=== PATIENT | male | born 1950 | race Caucasian/White ===

== ENCOUNTER 2021-03-30 18:42 | Inpatient (IN) ==
[2021-03-30] MEDS ORDERED: Lactated Ringers 1000 ml BAG IV.FLUID IV ONE (18:55)
[2021-03-30] MEDS ORDERED: cefTRIAXone 2 GM ADDV.VIAL 2 GM in NS 0.9% 100 ml BAG 100 ML IVPB ONE (21:31)
[2021-03-30 21:39] LABS: Activated Partial Thrombo Time 25.3 seconds (26.0-38.0); INR 1.37 (0.86-1.15)
[2021-03-30 21:44] LABS: ALT 72 U/L (7-52); AST 50 U/L (13-39); Albumin 2.5 g/dL (3.2-5.2); Albumin/Globulin Ratio 1.1 (1-3); Alkaline Phosphatase 64 U/L (35-149); Anion Gap 5 mmol/L (2-11); Blood Urea Nitrogen 19 mg/dL (6-24); C Reactive Protein 144.66 mg/L (<8.01); CO2 Carbon Dioxide 24 mmol/L (22-32); Calcium 7.5 mg/dL (8.6-10.3); Chloride 106 mmol/L (101-111); EGFR Non-African American 76.1 (>60); Globulin 2.3 g/dL (2-4); Glucose 143 mg/dL (70-100); Magnesium 1.8 mg/dL (1.9-2.7); Potassium 3.6 mmol/L (3.5-5.0); Sodium 135 mmol/L (135-145); Total Protein 4.8 g/dL (6.4-8.9)
[2021-03-30 21:45] LABS: Troponin I 0.01 ng/mL (<0.03)
[2021-03-30] MEDS ORDERED: Magnesium Sulfate 2 gm BAG 2 GM/50 ML BAG IVPB ONE (21:47)
[2021-03-30 21:55] LABS: Hematocrit 29 % (42-52); Hemoglobin 9.6 g/dL (14.0-18.0); Mean Corpuscular HGB Conc 33 g/dL (31-36); Mean Corpuscular Hemoglobin 30 pg (27-31); Mean Corpuscular Volume 91 fL (80-94); Red Blood Count 3.19 10^6 /uL (4.18-5.48); Red Cell Distribution Width 15 % (10-15); White Blood Count 3.7 10^3/uL (3.5-10.8)
[2021-03-30 22:02] LABS: Influenza A Molecular Negative (Negative); Influenza B Molecular Negative (Negative)
[2021-03-30] MEDS: NS 0.9% 1000 ml BAG 1,000 ML IV SCH (23:30)
[2021-03-31 00:05] LABS: Platelet Morphology Clumped; RBC Morphology Normal (Normal)
[2021-03-31 00:07] LABS: ABS Monocytes 0.6 10^3/ul (0-0.8); ABS Neutrophils 1.9 10^3/ul (1.5-7.7); Eosinophil % 0.2 %; Lymphocyte % 28.4 %; Nucleated Red Blood Cells % 0.4
[2021-03-31] MEDS: NS 0.9% 1000 ml BAG 1,000 ML IV SCH (01:48)
[2021-03-31 03:14] LABS: % Iron Saturation 21 % (15-55); Iron 45 ug/dL (50-212); Total Iron Binding Capacity 214 mcg/dL (250-450); Transferrin 153 mg/dL (203-362); Unsaturated Iron Binding < 199 ug/dL
[2021-03-31 03:28] LABS: TSH Ultra Thyroid Stim Horm 0.56 mcIU/mL (0.34-5.60)
[2021-03-31 03:53] LABS: Platelet Count, Citrated 73 10^3/ul (150-450)
[2021-03-31 05:04] LABS: Ferritin 1625.8 ng/mL (24-336)
[2021-03-31 08:45] LABS: INR 1.29 (0.86-1.15)
[2021-03-31 08:55] LABS: Albumin 2.3 g/dL (3.2-5.2); Albumin/Globulin Ratio 1.1 (1-3); EGFR African American 135.7 (>60); EGFR Non-African American 112.1 (>60); Globulin 2.1 g/dL (2-4); Phosphorus 2.8 mg/dL (2.5-5.0); Potassium 3.1 mmol/L (3.5-5.0); Total Bilirubin 0.5 mg/dL (0.2-1.0); Total Protein 4.4 g/dL (6.4-8.9)
[2021-03-31 08:56] LABS: Calcium 6.4 mg/dL (8.6-10.3)
[2021-03-31 09:19] LABS: ABS Lymphocytes 1.2 10^3/ul (1.0-4.8); ABS Monocytes 0.7 10^3/ul (0-0.8); ABS Neutrophils 1.9 10^3/ul (1.5-7.7); Eosinophil % 0.3 %; Hematocrit 27 % (42-52); Hemoglobin 9.2 g/dL (14.0-18.0); Lymphocyte % 31.1 %; Mean Corpuscular HGB Conc 34 g/dL (31-36); Mean Corpuscular Hemoglobin 30 pg (27-31); Mean Corpuscular Volume 89 fL (80-94); Nucleated Red Blood Cells % 0.2; Platelet Count Platelets clumped. 10^3/uL (150-450); Red Blood Count 3.04 10^6 /uL (4.18-5.48); Red Cell Distribution Width 15 % (10-15); White Blood Count 3.7 10^3/uL (3.5-10.8)
[2021-03-31] MEDS ORDERED: Potassium Chlor 20 meq TAB.ER PO ONE (09:40)
[2021-03-31] MEDS: KCL 20 MEQ/100 ML IVPREMIX 20 MEQ/100 ML BAG IV SCH ×2 (09:57→12:12)
[2021-03-31 10:25] LABS: Urine Appearance Clear; Urine Bilirubin Negative (Negative); Urine Blood 1+ (Negative); Urine Color Yellow; Urine Glucose Negative (Negative); Urine Ketones Negative (Negative); Urine Nitrite Negative (Negative); Urine Protein Negative (Negative); Urine Specific Gravity 1.012 (1.002-1.030); Urine Urobilinogen Negative (Negative)
[2021-03-31] MEDS ORDERED: oxyCODONE/Acetamin 5/325 mg TAB PO ONE (10:54)
[2021-03-31 11:21] LABS: Polychromasia 1+
[2021-03-31] MEDS: Azithromycin 500 mg/250 ml NS 500 MG/250 ML BAG IVPB SCH (14:09)
[2021-03-31] MEDS ORDERED: Lorazepam PYXIS KEY PRN (16:34)
[2021-03-31] MEDS: LORazepam 2 mg VIAL 1 ml IV PUSH ONE ×2 (17:22→18:14)
[2021-03-31 18:11] LABS: Calcium 7.6 mg/dL (8.6-10.3); EGFR African American 102.9 (>60); Magnesium 2.2 mg/dL (1.9-2.7); Potassium 4.1 mmol/L (3.5-5.0)
[2021-03-31] MEDS ORDERED: cefTRIAXone 1 gm/50 mL NS BAG 1 GM/50 ML BAG IVPB SCH (21:00)
[2021-04-01 07:24] LABS: Hematocrit 29 % (42-52); Hemoglobin 9.9 g/dL (14.0-18.0); Mean Corpuscular HGB Conc 35 g/dL (31-36); Mean Corpuscular Hemoglobin 31 pg (27-31); Mean Corpuscular Volume 89 fL (80-94); Mean Platelet Volume 9.3 fL (7.4-10.4); Red Blood Count 3.23 10^6 /uL (4.18-5.48); Red Cell Distribution Width 15 % (10-15); White Blood Count 3.6 10^3/uL (3.5-10.8)
[2021-04-01] MEDS ORDERED: NS 0.9% 1000 ml BAG 1,000 ML IV ONE (07:26)
[2021-04-01] MEDS ORDERED: Diltiazem IV push/loading dose 5 MG/ML 5 ML vial (25 mg) IV SLOW PU ONE (07:26)
[2021-04-01 07:31] LABS: Albumin 2.8 g/dL (3.2-5.2); Albumin/Globulin Ratio 1.1 (1-3); Calcium 7.9 mg/dL (8.6-10.3); EGFR Non-African American 97.5 (>60); Globulin 2.6 g/dL (2-4); Magnesium 2.1 mg/dL (1.9-2.7); Phosphorus 3.3 mg/dL (2.5-5.0); Potassium 3.7 mmol/L (3.5-5.0); Total Bilirubin 0.6 mg/dL (0.2-1.0); Total Protein 5.4 g/dL (6.4-8.9)
[2021-04-01 07:45] LABS: ABS Lymphocytes 1.4 10^3/ul (1.0-4.8); ABS Monocytes 0.5 10^3/ul (0-0.8); ABS Neutrophils 1.6 10^3/ul (1.5-7.7); Eosinophil % 0.5 %; Lymphocyte % 38.9 %; Nucleated Red Blood Cells % 0.1
[2021-04-01 07:48] LABS: Platelet Morphology Clumped; RBC Morphology Normal (Normal)
[2021-04-01 07:52] LABS: Platelet Count Platelets clumped. 10^3/uL (150-450)
[2021-04-01] MEDS ORDERED: Metoprolol Tartrate 5 mg VIAL 5 ml VIAL (1 mg/ml) ONE (07:53)
[2021-04-01] MEDS ORDERED: Metoprolol Tartrate 5 mg VIAL 5 ml VIAL (1 mg/ml) IV ONE (07:54)
[2021-04-01] MEDS ORDERED: Digoxin IV 0.5 MG/2 ML AMP (0.25 MG/ML) IV SLOW PU ONE ×3 (11:21→19:16)
[2021-04-01 12:41] LABS: RBC Parasite Smear No Parasites Seen (No Parasite)
[2021-04-01] MEDS: Azithromycin 500 mg/250 ml NS 500 MG/250 ML BAG IVPB SCH (13:24)
[2021-04-02 06:19] LABS: Platelet Count, Citrated 117 10^3/ul (150-450)
[2021-04-02 17:50] VITALS: BP 116/68
[2021-04-02 23:21] LABS: Anaplasma phagocytophilum Negative (Negative); Ehrlichia chaffeensis Negative (Negative); Ehrlichia ewingii/canis Negative (Negative); Ehrlichia muris eauclairensis Negative (Negative)
[2021-04-02 23:24] LABS: Anaplasma phagocytophilum Negative (Negative); B. miyamotoi PCR, B Negative (Negative); Babesia divergens/MO-1 Negative (Negative); Babesia ducani Negative (Negative); Ehrlichia chaffeensis Negative (Negative); Ehrlichia ewingii/canis Negative (Negative); Ehrlichia muris eauclairensis Negative (Negative)
== END 2021-04-02 15:00 | disposition home or self-care (01) | DRG 310 ==
LOC: ED 18:42 → ICU 23:14 → MEDTELE 03-31 17:38
PROVIDERS: ADMIT Hospitalist; ATTEND Student in an Organized Health Care Education/Training Program